=== PATIENT | male | born 1990 | race African-American/Black ===

== ENCOUNTER 2016-12-22 12:17 | Emergency (ER) | payer OTHER ==
[~2016-12-22] VITALS: Ht 172.7 cm; Wt 64.3 kg
[2016-12-22] MEDS ORDERED: FLEXERIL10 MG PO (15:13)
[2016-12-22] MEDS ORDERED: NAPROXEN500 MG PO (15:13)
[2016-12-22 15:19] VITALS: BP 131/69
== END 2016-12-22 15:38 | disposition home or self-care (01) ==
LOC: EME 12:17
DX: S39.012A Strain of muscle, fascia and tendon of lower back, initial encounter (principal); M54.16 Radiculopathy, lumbar region; Y99.0 Civilian activity done for income or pay; X50.1XXA Overexertion from prolonged static or awkward postures, initial encounter
CPT/HCPCS: 99281; 99283

== ENCOUNTER 2017-07-12 15:08 | Emergency (ER) | payer SELFPAY ==
[~2017-07-12] VITALS: Ht 172.7 cm; Wt 63.3 kg
[~2017-07-12 15:08] MED LIST: FLEXERIL10 MG PO; NAPROXEN500 MG PO
[2017-07-12] MEDS ORDERED: PERCOCET 5/31 TABLET PO (17:02)
[2017-07-12] MEDS ORDERED: MOTRIN800 MG PO (17:02)
[2017-07-12 17:35] VITALS: BP 145/82
== END 2017-07-12 17:51 | disposition home or self-care (01) ==
LOC: EME 15:08
DX: M54.5 Low back pain (principal); W21.11XA Struck by baseball bat, initial encounter; F17.200 Nicotine dependence, unspecified, uncomplicated
CPT/HCPCS: 99281; 99283